=== PATIENT | male | born 1970 | race Caucasian/White ===

== ENCOUNTER → 2016-12-08 | Outpatient (REF) | payer OTHER ==
[~2016-12-08] MED LIST: ALL10TAB27 PO; CLAR1TAB2 PO; NAPR250T45 PO
== END ==
LOC: M LAB REF 13:37
PROVIDERS: ATTEND Internal Medicine Pulmonary Disease
DX: D86.0 Sarcoidosis of lung (principal)

== ENCOUNTER → 2016-12-28 | Outpatient (CLI) | payer OTHER ==
[~2016-12-28] MED LIST changes: +ISOVUE-370 76% 100ML VIAL (Q9967) As Ordered ONE
--- NOTE | 2016-12-29 08:29 | REP ---
CT of the chest with IV contrast: Comparisons 07/31/2013. The patient has known sarcoidosis. There is no mediastinal, hilar or axillary lymph node enlargement. This is essentially unchanged. There are calcifications in the [place] bilaterally and in the subcarinal zone, likely a lymph node calcifications, unchanged. There are no acute infiltrates or effusions. There is chronic parenchymal scarring inferiorly in the right upper lobe, unchanged. There are no lung nodules or masses.. The lung mata otherwise clear and unchanged. The thoracic aorta is unremarkable. Cardiac size is normal. In the upper abdomen there is hepato steatosis. The gallbladder, pancreas and spleen are unremarkable. The adrenals are unremarkable. Impression: There is no interval change. There is no lymph node enlargement. The hilar and mediastinal calcifications are unchanged. There is chronic scarring inferiorly in the left upper lobe, unchanged. There is hepato steatosis, unchanged. Signed by Carmine Guzman MD 12/29/2016 08:21 A
== END ==
LOC: M RAD 17:02
PROVIDERS: ATTEND Internal Medicine Pulmonary Disease
DX: D86.0 Sarcoidosis of lung (principal)
CPT/HCPCS: 71260; Q9967

== ENCOUNTER → 2017-03-04 | Outpatient (CLI) | payer OTHER ==
[~2017-03-04] MED LIST changes: -ISOVUE-370 76% 100ML VIAL (Q9967) As Ordered ONE; +PROHANCE 279.3MG/ML 15ML VIAL (A9576) As Ordered ONE
--- NOTE | 2017-03-07 08:14 | REP ---
MRI brachial plexus without and with IV gadolinium: History: Right arm numbness. Comparison CT study of the chest is from December 28, 2016. History of sebaceous carcinoma right shoulder. Technique: Axial, coronal and sagittal imaging planes are utilized. T1 and T2-weighted scans were obtained with and without fat saturation. Gadolinium enhancement dose: 23.6 ml of intravenous ProHance. MRI findings: There is no evidence of brachial plexus mass or adenopathy on either side. No supraclavicular adenopathy is seen. No mediastinal adenopathy is seen in the upper mediastinum. Cortical and medullary bone signal intensity are normal. No pleural-based mass lesion is seen. Post gadolinium enhanced images show no abnormal gadolinium enhancement. Impression: Negative brachial plexus MRI study. Signed by Maldonado Rodas MD 03/07/2017 09:15 A
== END ==
LOC: M RAD 15:26
PROVIDERS: ATTEND Surgery
DX: R20.0 Anesthesia of skin (principal)
CPT/HCPCS: 71552; A9576

== ENCOUNTER → 2017-09-21 | Outpatient (CLI) | payer OTHER ==
[~2017-09-21] MED LIST changes: -ALL10TAB27 PO; -CLAR1TAB2 PO; -NAPR250T45 PO; +PROHANCE 279.3MG/ML 15ML VIAL (A9576) As Ordered; -PROHANCE 279.3MG/ML 15ML VIAL (A9576) As Ordered ONE; +PROHANCE 279.3MG/ML 5ML VIAL (A9576) As Ordered
== END ==
LOC: M RAD 07:07
DX: R20.0 Anesthesia of skin (principal)
CPT/HCPCS: A9576

== ENCOUNTER 2018-09-04 08:20 | Day surgery (SDC) | payer OTHER ==
[~2018-09-04] VITALS: Ht 175.3 cm; Wt 119.7 kg
[~2018-09-04 08:20] MED LIST changes: +ALL10TAB28 PO; +CLAR1TAB2 PO; +NAPR-885 PO; +NAPR250T82 PO; +NS 1,000 ML IV ONE; -PROHANCE 279.3MG/ML 15ML VIAL (A9576) As Ordered; -PROHANCE 279.3MG/ML 5ML VIAL (A9576) As Ordered
[2018-09-04] MEDS ORDERED: LIDOCAINE 2% INJ 100 MG/5 ML SDV (FOR ANES.) As Ordered ONE (09:24)
[2018-09-04] MEDS ORDERED: PROPOFOL 200 MG/20 ML VIAL As Ordered ONE ×2 (09:24→09:54)
--- NOTE | 2018-09-04 10:15 | ROOR ---
Patient Name: Buddy Kapoor Procedure Date: 09/04/2018 9:43 AM Date of : 1970 Age: 48 Room: [facility] Gender: Male Note Status: Finalized Procedure: Total Colonoscopy + Hot Snare Polypectomy + Bx. + Hemoclips Indications: Wolf Syndrome Providers: Jj Irene MD Referring MD: DARRIN CLIFFORD MD Requesting Provider: Medicines: Monitored Anesthesia Care Complications: No immediate complications. Procedure: Pre-Anesthesia Assessment: - The heart rate, respiratory rate, oxygen saturations, blood pressure, adequacy of pulmonary ventilation, and response to care were monitored throughout the procedure. The Colonoscope was introduced through the anus and advanced to the cecum, identified by appendiceal orifice and ileocecal valve. The colonoscopy was performed without difficulty. The patient tolerated the procedure well. The quality of the bowel preparation was excellent. Findings: The perianal and digital rectal examinations were normal. Non-bleeding internal hemorrhoids were found during retroflexion. The hemorrhoids were small and Grade I (internal hemorrhoids that do not prolapse). A small polyp was found in the transverse colon. The polyp was sessile. The polyp was removed with a jumbo cold forceps. Resection and retrieval were complete. A large polyp was found at 10 cm proximal to the anus. The polyp was semi-pedunculated. The polyp was removed with a hot snare. Resection and retrieval were complete. To prevent bleeding after the polypectomy, two hemostatic clips were successfully placed (MR conditional). There was no bleeding at the end of the procedure. The exam was otherwise without abnormality on direct and retroflexion views. Impression: - Non-bleeding internal hemorrhoids. - One small polyp in the transverse colon, removed with a jumbo cold forceps. Resected and retrieved. - One large polyp at 10 cm proximal to the anus, removed with a hot snare. Resected and retrieved. Clips (MR conditional) were placed. - The examination was otherwise normal on direct and retroflexion views. - The exam was otherwise normal to the cecum. Recommendation: - Patient has a contact number available for emergencies. The signs and symptoms of potential delayed complications were discussed with the patient. Return to normal activities tomorrow. Written discharge instructions were provided to the patient. - High fiber diet. - Discharge patient to home. - Continue present medications. - Await pathology results. - Telephone GI clinic for pathology results in 1 week. - Repeat colonoscopy for surveillance based on pathology results. - Return to referring physician. - The findings and recommendations were discussed with the patient's family. Jj Irene MD Jj Irene MD 09/04/2018 10:14:49 AM Electronically signed by Jj Irene MD Number of Addenda: 0 Note Initiated On: 09/04/2018 9:43 AM Estimated Blood Loss: Estimated blood loss: none.
[2018-09-04 10:40] VITALS: BP 128/72
== END 2018-09-04 10:39 | disposition home or self-care (01) ==
LOC: M OPP 08:20
PROVIDERS: ATTEND Internal Medicine Gastroenterology
DX: K64.0 First degree hemorrhoids (principal); D12.3 Benign neoplasm of transverse colon; G47.30 Sleep apnea, unspecified; Z80.0 Family history of malignant neoplasm of digestive organs; Z15.09 Genetic susceptibility to other malignant neoplasm

== ENCOUNTER 2020-03-26 08:28 | Day surgery (SDC) | payer OTHER ==
[~2020-03-26] VITALS: Ht 175.3 cm; Wt 120.7 kg
[~2020-03-26 08:28] MED LIST changes: -ALL10TAB28 PO; +CETI-24 PO; +METF500T13
[2020-03-26] MEDS ORDERED: LIDOCAINE 2% 100MG/5ML SDV (FOR ANES.) As Ordered ONE (08:29)
[2020-03-26] MEDS ORDERED: propofoL 200 MG/20 ML VIAL As Ordered ONE (08:29)
--- NOTE | 2020-03-26 10:20 | ROOR ---
Patient Name: Buddy [email or web address] Procedure Date: 03/26/2020 9:57 AM Date of : 1970 Age: 49 Room: [facility] Gender: Male Note Status: Finalized Procedure: Total Colonoscopy to Cecum Indications: High risk colon cancer surveillance: Personal history of adenoma with villous component, Incidental - Follow-up for history of colon polyps of uncertain behavior Providers: Jj Irene MD Referring MD: DARRIN CLIFFORD MD Requesting Provider: Medicines: Monitored Anesthesia Care Complications: No immediate complications. Procedure: Pre-Anesthesia Assessment: - The heart rate, respiratory rate, oxygen saturations, blood pressure, adequacy of pulmonary ventilation, and response to care were monitored throughout the procedure. The Colonoscope was introduced through the anus and advanced to the cecum, identified by appendiceal orifice and ileocecal valve. The colonoscopy was performed without difficulty. The patient tolerated the procedure well. The quality of the bowel preparation was excellent. Findings: The perianal and digital rectal examinations were normal. Non-bleeding internal hemorrhoids were found during retroflexion. The hemorrhoids were small and Grade I (internal hemorrhoids that do not prolapse). Scattered small-mouthed diverticula were found in the recto-sigmoid colon, sigmoid colon and descending colon. The exam was otherwise without abnormality on direct and retroflexion views. Impression: - Non-bleeding internal hemorrhoids. - Diverticulosis in the recto-sigmoid colon, in the sigmoid colon and in the descending colon. - The examination was otherwise normal on direct and retroflexion views. - No specimens collected. - The exam was otherwise normal to the cecum. Recommendation: - Patient has a contact number available for emergencies. The signs and symptoms of potential delayed complications were discussed with the patient. Return to normal activities tomorrow. Written discharge instructions were provided to the patient. - High fiber diet. - Discharge patient to home. - Continue present medications. - Repeat colonoscopy in 5 years for surveillance. - Return to referring physician. - The findings and recommendations were discussed with the patient. Jj Irene MD Jj Irene MD 03/26/2020 10:19:31 AM Electronically signed by Jj Irene MD Number of Addenda: 0 Note Initiated On: 03/26/2020 9:57 AM Estimated Blood Loss: Estimated blood loss: none.
[2020-03-26 10:46] VITALS: BP 102/56
== END 2020-03-26 10:49 | disposition home or self-care (01) ==
LOC: M OPP 08:28
PROVIDERS: ATTEND Internal Medicine Gastroenterology
DX: Z86.010 Personal history of colon polyps (principal); Z09 Encounter for follow-up examination after completed treatment for conditions other than malignant neoplasm; K57.30 Diverticulosis of large intestine without perforation or abscess without bleeding; K64.0 First degree hemorrhoids; E11.9 Type 2 diabetes mellitus without complications; Z79.84 Long term (current) use of oral hypoglycemic drugs

== ENCOUNTER → 2022-11-30 | Outpatient (CLI) | payer OTHER ==
[~2022-11-30] MED LIST changes: -NS 1,000 ML IV ONE
== END ==
LOC: M RAD 15:24
PROVIDERS: ATTEND Internal Medicine Pulmonary Disease
DX: D86.0 Sarcoidosis of lung (principal)

== ENCOUNTER → 2023-08-16 | Outpatient (CLI) | payer OTHER | LOC: M RAD 13:10 | PROVIDERS: ATTEND Nurse Practitioner Family | DX: R94.6 Abnormal results of thyroid function studies (principal) ==

== ENCOUNTER → 2024-06-11 | Outpatient (CLI) | payer OTHER | LOC: M RAD 15:52 | PROVIDERS: ATTEND Internal Medicine Pulmonary Disease | DX: D86.0 Sarcoidosis of lung (principal); G47.33 Obstructive sleep apnea (adult) (pediatric) ==

== ENCOUNTER 2024-08-08 09:03 | Day surgery (SDC) | payer OTHER ==
[~2024-08-08] VITALS: Ht 175.3 cm; Wt 107.0 kg
[~2024-08-08 09:03] MED LIST changes: +CLAR10CA3 PO; +JARD1TAB PO; +METF-838 PO; +SEMA2PEN SC
[2024-08-08] MEDS ORDERED: propofoL 200 MG/20 ML VIAL As Ordered ONE (09:53)
[2024-08-08 10:07] VITALS: TEMP 98.7
[2024-08-08 10:25] VITALS: BP 114/71; O2SAT 96
== END 2024-08-08 10:35 | disposition home or self-care (01) ==
LOC: M OPP 09:03
PROVIDERS: ATTEND Surgery
DX: D12.3 Benign neoplasm of transverse colon (principal); D12.2 Benign neoplasm of ascending colon; K57.30 Diverticulosis of large intestine without perforation or abscess without bleeding; K64.1 Second degree hemorrhoids; Z86.0100 Personal history of colon polyps, unspecified; G47.30 Sleep apnea, unspecified; Z79.84 Long term (current) use of oral hypoglycemic drugs; Z79.85 Long-term (current) use of injectable non-insulin antidiabetic drugs